=== PATIENT | female | born 1985 | race American Indian/Alaskan Native ===

== ENCOUNTER 2017-08-28 02:23 | Emergency (ER) | payer OTHER ==
[2017-08-28 02:49] VITALS: RESP 18; O2SAT 100
[2017-08-28 04:49] LABS: BASO # 0.1 K/uL (0.0-0.2); BASO % 1.1 % (0.0-2.0); EOS # 0.3 K/uL (0.0-0.7); EOS % 4.2 % (0.0-4.0); HEMOGLOBIN 12.3 g/dL (11.0-16.0); LYMPH # 3.4 K/uL (1.0-4.3); LYMPH % 42.3 % (20.0-40.0); MEAN CELL VOLUME 79.6 fL (81.0-99.0); MEAN CORPUSCULAR HEMOGLOBIN 26.2 pg (27.0-31.0); MEAN CORPUSCULAR HGB CONC 32.9 g/dL (33.0-37.0); MEAN PLATELET VOLUME 7.8 fL (7.2-11.7); MONO # 0.4 K/uL (0.0-0.8); MONO % 5.4 % (0.0-10.0); NEUT # 3.8 K/uL (1.8-7.0); NRBC % 0.1 % (0.0-2.0); RBC 4.7 Mil/uL (3.80-5.20); RED CELL DISTRIBUTION WIDTH 15.8 % (11.5-14.5); WHITE BLOOD COUNT 8.1 K/uL (4.8-10.8)
[2017-08-28 05:02] LABS: ALB/GLOB RATIO 1.1 (1.0-2.1); ALBUMIN 4.2 g/dL (3.5-5.0); ALT/SGPT 18 U/L (9-52); AST/SGOT 31 U/L (14-36); BLOOD UREA NITROGEN 15 mg/dL (7-17); CALCIUM 9.1 mg/dl (8.6-10.4); GFR AFRICAN-AMERICAN > 60; GFR NON-AFRICAN AMERICAN > 60
[2017-08-28 05:11] LABS: B-TYPE NATRIURETIC PEPTIDE 33.5 pg/mL (0-450)
[2017-08-28 05:24] VITALS: BP 129/86; PULSE 89; TEMP 98.8
--- NOTE | 2017-08-28 05:24 | C.PDOC ---
History Of Present Illness 32 year old female presents to the ED for evaluation of chronic bilateral leg swelling which worsened today. Patient states she had had intermittent swelling to her bilateral lower legs and feet since 2015. Patient has undergone multiple ultrasound, all of which have produced unremarkable results. She noticed her feet were more swollen than usual, which prompted this visit. Patient denies fever, travel, chills, chest pain, shortness of breath, leg pain, extremity numbness/weakness, use of control pills, or injury/trauma to the site. Time Seen by Provider: 08/28/17 03:23 Chief Complaint (Nursing): Lower Extremity Problem/Injury History Per: Patient History/Exam Limitations: no limitations Onset/Duration Of Symptoms: Days, Intermittent Episodes Current Symptoms Are (Timing): Worse Pain Scale Rating Of: 1 - Ankle/Foot Description Of Injury: denies: Fell, Struck With Object, Struck Against Object Past Medical History Reviewed: Historical Data, Nursing Documentation, Vital Signs Vital Signs: Last Vital Signs Temp 98.8 F 08/28/17 05:21 Pulse 89 08/28/17 05:21 Resp 18 08/28/17 05:21 BP 129/86 08/28/17 05:21 Pulse Ox 100 08/28/17 06:57 - Medical History PMH: No Chronic Diseases Surgical History: No Surg Hx Family History: States: No Known Family Hx - Social History Hx Alcohol Use: No Hx Substance Use: No - Immunization History Hx Tetanus Toxoid Vaccination: No Hx Influenza Vaccination: No Hx Pneumococcal Vaccination: No Review Of Systems Except As Marked, All Systems Reviewed And Found Negative. Constitutional: Negative for: Fever, Chills Cardiovascular: Negative for: Chest Pain Respiratory: Negative for: Shortness of Breath Musculoskeletal: Negative for: Leg Pain Skin: Positive for: Other (leg swelling ) Neurological: Negative for: Weakness, Numbness Physical Exam - Physical Exam Appears: Non-toxic, No Acute Distress Skin: Normal Color, Warm, Dry, No Rash, No Ecchymosis Head: Atraumatic, Normacephalic Eye(s): bilateral: Normal Inspection, PERRL, EOMI Oral Mucosa: Moist Neck: Normal ROM, Supple Chest: Symmetrical, No Deformity, No Tenderness Cardiovascular: Rhythm Regular, No Murmur Respiratory: Normal Breath Sounds, No Rales, No Rhonchi, No Wheezing Gastrointestinal/Abdominal: Soft, No Tenderness, No Distention, No Guarding, No Rebound Back: No Vertebral Tenderness, No Paraspinal Tenderness Extremity: Normal ROM, No Calf Tenderness, Capillary Refill (less than 2 seconds ), No Deformity, Other (2+ edema to bilateral ankles and feet, no erythema or tendernesss) Extremity: Bilateral: Normal Color And Temperature Pulses: Left Dorsalis Pedis: Normal, Right Dorsalis Pedis: Normal Neurological/Psych: Oriented x3, Normal Speech, Normal Cognition, Normal Motor, Normal Sensation Gait: Steady ED Course And Treatment - Laboratory Results Result Diagrams: 08/28/17 04:47 08/28/17 04:47 O2 Sat by Pulse Oximetry: 100 (on RA ) Pulse Ox Interpretation: Normal Medical Decision Making Medical Decision Making: Old records reviewed. There are no prior ED visits. Progress: Bloodwork ordered and reviewed. Labs are normal. Disposition - Disposition Referrals: [facility] [Outside] Disposition: HOME/ ROUTINE Disposition Time: 05:26 Condition: GOOD Additional Instructions: Use compression stocking while at work and during the day. Prescriptions: Compression Socks, Medium [Futuro Restoring] 1 each MC DAILY #2 each Instructions: Dependent Edema (DC) Forms: [employer] (K[place]ovan) - Clinical Impression Clinical Impression: Leg edema - PA / MAINFRAME SYSTEMS ADMINISTRATOR / Resident Statement MD/DO has reviewed & agrees with the documentation as recorded. - Scribe Statement The provider has reviewed the documentation as recorded by the Scribe (Ashley Paz) All medical record entries made by the Scribe were at my direction and personally dictated by me. I have reviewed the chart and agree that the record accurately reflects my personal performance of the history, physical exam, medical decision making, and the department course for this patient. I have also personally directed, reviewed, and agree with the discharge instructions and disposition.
== END 2017-08-28 05:35 | disposition home or self-care (01) ==
LOC: MERGE 02:23 → C.ER 02:23
DX: R60.0 Localized edema (principal)